=== PATIENT | female | born 1945 | race Hispanic/Latino ===

== ENCOUNTER 2017-09-12 06:53 | Day surgery (SDC) | payer MEDICARE, BC ==
[2017-09-11 12:51] VITALS: BMI 32.8
[2017-09-12 07:33] LABS: BASO # 0.07 K/mm3 (0.0-2.0); BASO % 0.9 % (0.0-3.0); EOS # 0.1 (0.0-0.7); EOS % 1.8 % (1.5-5.0); GRAN # 4.71 (1.4-6.5); GRAN % 63.6 % (50.0-68.0); HEMOGLOBIN 15.1 g/dL (12.0-16.0); LYMPH # 1.8 (1.2-3.4); LYMPH % 24.2 % (22.0-35.0); MEAN CELL VOLUME 89.1 fl (80.0-105.0); MEAN CORPUSCULAR HEMOGLOBIN 30.9 pg (25.0-35.0); MEAN CORPUSCULAR HGB CONC 34.7 g/dl (31.0-37.0); MEAN PLATELET VOLUME 10.3 fl (7.0-11.0); MONO # 0.7 (0.1-0.6); MONO % 9.5 % (1.0-6.0); RBC 4.88 10^6/uL (3.5-6.1); RED CELL DISTRIBUTION WIDTH 13.4 % (11.5-14.5); WHITE BLOOD COUNT 7.4 10^3/ul (4.5-11.0)
[2017-09-12 07:44] LABS: BLOOD UREA NITROGEN 12 mg/dL (7-21); CALCIUM 9.9 mg/dL (8.4-10.5); GFR NON-AFRICAN AMERICAN > 60
[2017-09-12 07:51] VITALS: RESP 18
[2017-09-12 07:55] LABS: INR 0.97 (0.93-1.08); PARTIAL THROMBOPLASTIN TIME 34.2 Seconds (25.1-36.5); PROTHROMBIN TIME 11.1 SECONDS (9.4-12.5)
[2017-09-12] MEDS ORDERED: Lidocaine 2% Inj (20ml) ONE (08:17)
[2017-09-12] MEDS ORDERED: Iodixanol 320 MG/ML 200 ML BOTTLE IV ONE (08:17)
[2017-09-12] MEDS ORDERED: Midazolam 2 MG/2 ML VIAL ONE ×2 (08:37→09:05)
[2017-09-12] MEDS ORDERED: Sodium Chloride 0.9% 1,000 ML IV SCH (09:30)
[2017-09-12 09:49] VITALS: TEMP 98.1
--- NOTE | 2017-09-12 09:53 | CARDCATH ---
PROCEDURE DATE: 09/12/2017 HISTORY: The patient is a 71-year-old woman, who presents with chest pain. Stress test was abnormal. Her cardiac risk factors include hypercholesterolemia. The patient has history of anxiety. PROCEDURE: Left heart catheterization with coronary arteriography, left ventriculogram. The right femoral artery was cannulated with a 6-Malian sheath. There were no complications. I performed moderate sedation which included the presence of an independent trained observer that assisted in monitoring the patient's level of consciousness and physiologic status. After administration of Versed and fentanyl, my intra service time was 15 minutes. The findings on catheterization revealed a left ventricle that contracted normally. Estimated ejection fraction of 60%. Her coronary anatomy revealed a right dominant circulation. The RCA revealed mild intimal irregularities without critical lesions. The left main artery was unremarkable. The LAD and diagonal vessels were free of significant disease. The circumflex artery and obtuse marginal branches revealed mild intimal irregularities without critical lesions. Angio-Seal was used to close the femoral artery site. The patient tolerated the procedure well. In summary, the procedure revealed unremarkable coronary arteries. Normal LV function. Given these findings, the patient's treatment will be to continue a cardiac risk reduction program. I have reassured the patient of her good cardiac catheterization results. Darshan Redding MD
[2017-09-12 11:17] VITALS: O2SAT 96
[2017-09-12 13:25] VITALS: BP 116/77; PULSE 57
--- NOTE | 2017-09-12 22:55 | CARD ---
APPROVED REPORT EKG Measurement Heart [id number] <Conclusion> Normal sinus rhythm Normal ECG
== END 2017-09-12 15:30 | disposition home or self-care (01) ==
LOC: SDSVAS 06:53
PROVIDERS: ATTEND Internal Medicine Cardiovascular Disease
DX: I25.118 Atherosclerotic heart disease of native coronary artery with other forms of angina pectoris (principal); E78.00 Pure hypercholesterolemia, unspecified; I27.20 Pulmonary hypertension, unspecified; F41.9 Anxiety disorder, unspecified
CPT/HCPCS: 36415; 80048; 85025; 85610; 85730; 86850; 86900; 93005; 93458; 99152; 99153; C1760; C1769; C2629; J1644; J2250; J3010; J7030 ×2; Q9966

== ENCOUNTER 2018-04-11 10:00 | Outpatient (CLI) | payer MEDICARE, BC | END 2018-04-11 10:01 | disposition home or self-care (01) | LOC: LAB 10:00 ==